=== PATIENT | male | born 1985 | race Caucasian/White ===

== ENCOUNTER 2018-10-22 17:56 | Emergency (ER) | payer OTHER ==
[2018-10-22 19:02] LABS: BASO # 0.1 10*3/uL (0.0-0.1); BASO % 0.6 % (0.0-1.0); EOS # 0.2 10*3/uL (0.0-0.4); EOS % 1.5 % (1.0-4.0); HEMATOCRIT 44.7 % (42.0-52.0); HEMOGLOBIN 14.8 g/dl (14.0-18.0); LYMPH # 3.3 10*3/uL (1.3-4.4); MEAN CELL VOLUME 89.9 fl (80.0-94.0); MEAN CORPUSCULAR HGB 29.8 pg (27.0-31.0); MEAN CORPUSCULAR HGB CONC 33.1 g/dl (33.0-37.0); MEAN PLATELET VOLUME 10.7 fl (9.6-12.3); MONO # 0.8 10*3/uL (0.1-1.0); MONO % 7.4 % (3.0-9.0); NEUT # 6.9 10*3/uL (2.3-7.9); NEUT % 61.3 % (47.0-73.0); PLATELET COUNT AUTOMATED 285 10*3/uL (130-400); RED BLOOD COUNT 4.97 10*6/uL (4.50-5.90); WHITE BLOOD COUNT 11.3 10*3/uL (4.8-10.8)
[2018-10-22 19:24] LABS: ALKALINE PHOSPHATASE 96 U/L (45-117); BUN 18 mg/dl (7-24); CHLORIDE 104 mmol/L (98-107); SGOT/AST 24 IU/L (3-35); SGPT/ALT 56 U/L (12-78); SODIUM 137 mmol/L (136-145); TOTAL PROTEIN 8.5 gm/dL (6.4-8.2)
[2018-10-22 19:27] LABS: ACETAMINOPHEN (TYLENOL) < 2.0 ug/ml (10-30); ETHYL ALCOHOL < 3.0 mg/dl (<3)
[2018-10-22 21:01] LABS: URINE AMPHETAMINES < 1000 (1000ng/ml); URINE BARBITURATES < 200 (200ng/ml); URINE BENZODIAZEPINES > 200 (200ng/ml); URINE CANNABINOIDS (THC) < 50 (50ng/ml); URINE COCAINE < 300 (300ng/ml); URINE METHADONE < 300 (300ng/ml); URINE OPIATES > 300 (300ng/ml)
[2018-10-22 21:03] LABS: URINE PHENCYCLIDINE < 25 (25ng/ml)
== END 2018-10-22 20:45 | disposition home or self-care (01) ==
LOC: ED 17:56
PROVIDERS: Physician Assistant
DX: T40.1X1A Poisoning by heroin, accidental (unintentional), initial encounter (principal); Y92.128 Other place in nursing home as the place of occurrence of the external cause

== ENCOUNTER 2019-06-20 13:56 | Inpatient (IN) | payer OTHER ==
[~2019-06-20] VITALS: Ht 180.3 cm; Wt 87.1 kg
[2019-06-20 15:00] VITALS: BP 133/89
--- NOTE | 2019-06-20 15:11 | NUR ---
33 year old MALE admitted to room # 425 for stabilization. Reports an addiction to HEROIN last used 12 hours prior to admission. Compliant with admission procedure. Patient denies any anxiety, but is unable to sit still, taps toes to floor continuously, looks about room, unable to focus eyes on nurse during interview. See assessment forms for additional information about patient status.
--- NOTE | 2019-06-20 15:32 | NUR ---
PATIENT MEETS [facility]. CINA=[id number]. PATIENT IS WANTING TO FOLLOW UP WITH [facility] FOR RESIDENTIAL TREATMENT. MARIELY DIMAS B.A. OCCUPATIONAL HEALTH TECHNICIAN
[2019-06-20 16:00] VITALS: BP 107/59; BP 149/91
[2019-06-20 16:08] LABS: BILIRUBIN NEGATIVE (NEGATIVE); BLOOD TRACE-INTACT (NEGATIVE); CLARITY CLEAR (CLEAR); COLOR YELLOW (YELLOW); GLUCOSE NEGATIVE (NEGATIVE); KETONE TRACE (NEGATIVE); LEUKO ESTERASE NEGATIVE (NEGATIVE); NITRITE NEGATIVE (NEGATIVE); UROBILINOGEN 0.2 E.U./dl (0.2-1.0)
[2019-06-20 16:13] LABS: BASO % 0.3 % (0.0-1.0); EOS # 0.1 10*3/uL (0.0-0.4); EOS % 0.7 % (1.0-4.0); HEMATOCRIT 40.5 % (42.0-52.0); HEMOGLOBIN 13.5 g/dl (14.0-18.0); LYMPH # 1.3 10*3/uL (1.3-4.4); LYMPH % 12.5 % (27.0-41.0); MEAN CELL VOLUME 88.4 fl (80.0-94.0); MEAN CORPUSCULAR HGB 29.5 pg (27.0-31.0); MEAN CORPUSCULAR HGB CONC 33.3 g/dl (33.0-37.0); MEAN PLATELET VOLUME 10.9 fl (9.6-12.3); MONO # 0.7 10*3/uL (0.1-1.0); MONO % 6.8 % (3.0-9.0); NEUT # 8.6 10*3/uL (2.3-7.9); NEUT % 79.4 % (47.0-73.0); PLATELET COUNT AUTOMATED 307 10*3/uL (130-400); RED BLOOD COUNT 4.58 10*6/uL (4.50-5.90); RED CELL DISTRI WIDTH 13.1 % (0-14.5); WHITE BLOOD COUNT 10.8 10*3/uL (4.8-10.8)
[2019-06-20 16:16] LABS: MUCOUS 2+; WBC 0-2 wbc/hpf (0-5)
[2019-06-20 16:17] LABS: URINE AMPHETAMINES < 1000 (1000ng/ml); URINE BARBITURATES < 200 (200ng/ml); URINE BENZODIAZEPINES < 200 (200ng/ml); URINE CANNABINOIDS (THC) < 50 (50ng/ml); URINE COCAINE < 300 (300ng/ml); URINE METHADONE < 300 (300ng/ml); URINE OPIATES > 300 (300ng/ml)
[2019-06-20 16:21] LABS: URINE PHENCYCLIDINE < 25 (25ng/ml)
[2019-06-20 16:30] LABS: ALBUMIN 3.7 gm/dl (3.1-4.5); ALKALINE PHOSPHATASE 117 U/L (45-117); BUN 9 mg/dl (7-24); CHLORIDE 106 mmol/L (98-107); CREATININE 0.93 mg/dL (0.70-1.30); POTASSIUM 3.8 mmol/L (3.5-5.1); SGOT/AST 38 IU/L (3-35); SGPT/ALT 80 U/L (12-78); SODIUM 137 mmol/L (136-145); TOTAL PROTEIN 7.7 gm/dL (6.4-8.2)
--- NOTE | 2019-06-20 16:30 | NUR ---
Patient reports the following symptoms of withdrawal: body aches, leg pain, heroin cravings. Patient given scheduled/PRN medication to control withdrawal symptoms. Close observation will be maintained.
[2019-06-20 16:31] LABS: ETHYL ALCOHOL < 3.0 mg/dl (<3)
--- NOTE | 2019-06-20 19:19 | NUR ---
PATIENT RESTING IN BED. IS AGREEABLE TO START SUBUTEX TAPER AT 1999. PHARMACY MADE AWARE
[2019-06-20 20:00] VITALS: BP 125/73
--- NOTE | 2019-06-20 21:47 | NUR ---
PATIENT AMBULATING HALLWAYS. REMINDED TO NOT LEAVE THE FLOOR. PATIENT VERBALIZED UNDERSTANDING
--- NOTE | 2019-06-20 22:36 | NUR ---
MEDICATED WITH MORTIN, ROBAXIN, AND VISTARIL FOR WITHDRAWAL SYMPTOMS
--- NOTE | 2019-06-20 22:39 | NUR ---
DR HEALY AWARE OF PATIENT REQUESTING BENEDRYL OR REMERON FOR SLEEP
--- NOTE | 2019-06-20 22:56 | NUR ---
ONE TIME BENEDRYL GIVEN PER ORDER FOR SLEEPLESSNESS
[2019-06-21] VITALS: BP 125/73
[2019-06-21 04:00] VITALS: BP 119/74
[2019-06-21 08:00] VITALS: BP 131/80
--- NOTE | 2019-06-21 08:45 | NUR ---
PT MEDICATED WITH PRN REQUIP AND ROBAXIN FOR C/O RESTLESS LEGS AND CRAMPING. WILL MONITOR.
--- NOTE | 2019-06-21 09:45 | NUR ---
PRN MEDS EFFECTIVE PER PT.
[2019-06-21 12:00] VITALS: BP 117/66
--- NOTE | 2019-06-21 13:56 | NUR ---
IN STAFF SENT PATIENT'S ASSESSMENT TO [facility]. SPOKE WITH FACILITY AND THEY STATED THAT THEY HAVE A BED AVAILABLE FOR WEDNESDAY, Jun. SPOE TO PATIENT ABOUT TRANSPORTATION. PATIENT IS WAITING TO HEAR BACK FROM FAMILY, IF NOT STAFF WILL SET UP TRANSPORTATION THROUGH HIS INSURANCE. MARIELY DIMAS B.A. BOAT REPAIRER
[2019-06-21 16:00] VITALS: BP 116/72
--- NOTE | 2019-06-21 16:02 | NUR ---
PT MEDICATED WITH PRN MOTRIN FOR C/O A HEADACHE. NICOTINE PATCH REPLACED.
[2019-06-21 20:00] VITALS: BP 118/74
--- NOTE | 2019-06-21 21:11 | NUR ---
PT COMPLAIN OF WITHDRAWL SYMPTOMS, PRN GIVEN
--- NOTE | 2019-06-21 23:45 | NUR ---
PATIENT MEDICATED WITH AMBIEN AND MAALOX PER PRN ORDER FOR C/O INABILITY TO SLEEP AND DYSPEPSIA. SEE EMAR. REINFORCED USE OF CALL LIGHT.
[2019-06-22] VITALS: BP 121/76
[2019-06-22 08:00] VITALS: BP 120/80
--- NOTE | 2019-06-22 09:21 | NUR ---
ROBAXIN FOR MUSCLE PAIN AND MOTRIN FOR PAIN RATED 6/10 GIVEN PER PATIENT REQUEST. WILL ASSESS EFFECTIVENESS.
--- NOTE | 2019-06-22 09:22 | NUR ---
REFUSED LOVENOX SHOT. RATIONALE FOR LOVENOX GIVEN. PATIENT STILL REFUSING.
--- NOTE | 2019-06-22 10:20 | NUR ---
PRN MEDS EFFECTIVE PER PATIENT.
[2019-06-22 12:00] VITALS: BP 119/74
--- NOTE | 2019-06-22 15:19 | NUR ---
PATIENT IS SET TO GO TO [facility] ON June AT 2:30PM. PATIENT REPORTS THAT HIS FAMILY WILL TRANSPORT HIM TO FACILITY. MARIELY DIMAS B.A. CHECKERER HAND
[2019-06-22 16:00] VITALS: BP 127/78
--- NOTE | 2019-06-22 19:31 | NUR ---
PATIENT MEDICATED WITH ROBAXIN,VISTARIL. REQUIP AND MOTRIN PER PRN ORDER FOR C/O BACK PAIN AND S/S OF WITHDRAWAL. RATED BACK PAIN A 5/10 WITH 10 BEING THE WORST. SEE EMAR. REINFORCED USE OF CALL LIGHT.
--- NOTE | 2019-06-22 22:00 | NUR ---
Patient resting. Responding to scheduled medications with fewer complaints of pain and anxiety.
[2019-06-23] VITALS: BP 134/78; BP 134/98
[2019-06-23 08:00] VITALS: BP 110/50
--- NOTE | 2019-06-23 09:32 | NUR ---
Medicated with vistaril and robaxin po per prn order for c/o anxiety and muscles aches.
--- NOTE | 2019-06-23 10:30 | NUR ---
Pt states medication given earlier helped with anxiety and muscles aches.
--- NOTE | 2019-06-23 11:10 | NUR ---
Discharge instructions reviewed with patient. Patient receptive and verbalizes understanding. Follow-up care arranged. Written instructions given to patient. Pt laila is coming from [place] and will be here at 1pm.
--- NOTE | 2019-06-23 12:46 | NUR ---
Medicated with motrin po per prn order for generalized body aches.
--- NOTE | 2019-06-23 13:20 | NUR ---
Pt states his ride arrived and he is leaving. Left with dc instruction and belongings.
== END 2019-06-23 13:20 | disposition home or self-care (01) | DRG 773 ==
LOC: 4E 13:56
PROVIDERS: Hospitalist; ADMIT Internal Medicine
DX: F11.23 Opioid dependence with withdrawal (principal); R10.13 Epigastric pain; R61 Generalized hyperhidrosis; M54.5 Low back pain; R53.83 Other fatigue; F17.210 Nicotine dependence, cigarettes, uncomplicated; D64.9 Anemia, unspecified; R94.5 Abnormal results of liver function studies; R73.9 Hyperglycemia, unspecified; Z82.61 Family history of arthritis